=== PATIENT | male | born 1945 ===

== ENCOUNTER 2019-01-05 12:29 | Outpatient (CLI) | payer MEDICARE, OTHER | END 2019-01-05 12:30 | disposition home or self-care (01) | LOC: C.RADIC 12:29 | DX: Z01.818 Encounter for other preprocedural examination (principal) ==

== ENCOUNTER 2019-01-17 08:25 | Day surgery (SDC) | payer MEDICARE, OTHER ==
[2019-01-17] MEDS ORDERED: ceFAZolin 1 gm in NS 2 GM/200 ML BAG IVPB ONE (08:58)
[2019-01-17] MEDS ORDERED: Lidocaine/Epinephrine 1% 1:100000 10 ML IJ ONE (08:59)
[2019-01-17] MEDS ORDERED: Bupivacaine 0.25% 20 ML INJ IJ ONE (08:59)
[2019-01-17] MEDS ORDERED: Sodium Chloride 0.9% 40 ML IV ONE (08:59)
[2019-01-17 09:00] VITALS: BMI 26.9
[2019-01-17] MEDS ORDERED: Bupivacaine Liposomal Inj 20 ml INFIL ONE (09:18)
[2019-01-17] MEDS ORDERED: Propofol 10 mg/ml Inj (20 ML) ONE ×2 (09:23→11:32)
[2019-01-17] MEDS ORDERED: Midazolam 2 MG/2 ML VIAL ONE (09:24)
[2019-01-17 09:45] LABS: PROTHROMBIN TIME 10.6 SECONDS (9.7-12.2)
[2019-01-17] MEDS ORDERED: Rocuronium 10 mg/ml (5 ml) ONE (11:25)
[2019-01-17] MEDS ORDERED: Neostigmine 1:1000 (1 mg/ml) Inj ONE (11:26)
--- NOTE | 2019-01-17 12:01 | PCM.SURG1 ---
Surgeon's Initial Post Op Note - Surgeon's Notes Surgeon: Dr. Baeza [employer] Maintainer: Dr. Roxana Cavazos, PGY 1, Elaine Sharpe Type of Anesthesia: General Endo Anesthesia Administered By: Dr. Gutierrez Pre-Operative Diagnosis: Left inguinal hernia Operative Findings: see operative report Post-Operative Diagnosis: left indirect inguinal hernia Operation Performed: robotic left inguinal hernia repair with mesh, TEP block Specimen/Specimens Removed: none Estimated Blood Loss: EBL {In ML}: 5 Blood Products Given: N/A Drains Used: No Drains Post-Op Condition: Good Date of Surgery/Procedure: 01/17/19 Time of Surgery/Procedure: 10:00
[2019-01-17] MEDS ORDERED: Lactated Ringer's 1,000 ML IV ONE (12:15)
[2019-01-17 14:52] VITALS: PULSE 103; RESP 20; TEMP 97.5; O2SAT 99
[2019-01-17 14:54] VITALS: BP 146/69
--- NOTE | 2019-01-19 02:39 | OP ---
PROCEDURE DATE: 01/17/2019 PREOPERATIVE DIAGNOSIS: Left inguinal hernia. POSTOPERATIVE DIAGNOSIS: Left indirect inguinal hernia. PROCEDURES DONE: 1. Robotic left inguinal hernia repair with a mesh. 2. Laparoscopic bilateral transverse abdominis plane block placement. SURGEON: Anil Baeza MD ASSISTANTS: PRETTY Escobar and Josie, PGY-1 resident. TYPE OF ANESTHESIA: General endotracheal tube anesthesia. ESTIMATED BLOOD LOSS: Around 10 mL. DRAINS: None. PATHOLOGY: None. COMPLICATIONS: None. INTRAOPERATIVE FINDINGS: The patient had left indirect complete inguinal hernia. DESCRIPTION OF PROCEDURE: On intraoperative steps, this is a 73-year-old male who was diagnosed with left inguinal hernia, and patient was consented for robotic left inguinal hernia repaired with a mesh, brought to the OR, placed supine on operating table. After induction of the anesthesia, the abdomen was prepped and draped in a usual sterile fashion. Local anesthesia was injected and the supraumbilical incision was made using the open technique. Peritoneal cavity was entered. Pneumo was created. Another 3-8 mm port was placed in the upper abdomen. The robot was brought in. Camera arm as well as arm 1 and arm 2 was docked. An incision was made from the midline up to the left ASIS and the peritoneal dissection was done deep up to the space of Retzius in the midline laterally. The lateral abdominal wall was dissected from the vas deferens and spermatic cord vessels, and the dissection was done to reduce the hernial sac into the peritoneal cavity. Inferior dissection was done up to the pelvic rim, now the left side anatomical mesh was placed. After proper placement of the mesh, peritoneum was sutured with 0 Vicryl as well as 3-0 PDS continuous suture and now the procedure was converted to laparoscopic and bilateral TAP block was given, 30:30 mL of Exparel was injected into the transverse abdominal muscle plane area, and after proper TAP block, all the ports were taken out under vision. Pneumo was deflated. Umbilical port site was closed in two layers. The fascia with a 0 Vicryl interrupted suture, skin with 4-0 Monocryl, and dry sterile dressing was applied. The patient tolerated the procedure well. Counts of instrument and gauze were correct. There were no apparent complications. The patient was reversed from anesthesia and sent to the postanesthesia care unit in stable condition. Anil Baeza MD [facility] # [id number]
== END 2019-01-17 15:29 | disposition home or self-care (01) ==
LOC: C.SDS 08:25
PROVIDERS: ATTEND Surgery Surgical Critical Care
DX: K40.90 Unilateral inguinal hernia, without obstruction or gangrene, not specified as recurrent (principal)
CPT/HCPCS: 36415; 49650; 85610; 85730; C1781; J0690; J1100; J2001; J2250; J2405; J2704; J2710; J3010; J7120